=== PATIENT | female | born 1995 | race Two or more races ===

== ENCOUNTER 2016-10-16 20:36 | Emergency (ER) | payer OTHER ==
[~2016-10-16] VITALS: Ht 165.1 cm; Wt 72.1 kg
[2016-10-16 21:37] VITALS: BP 126/69
== END 2016-10-16 23:01 | disposition home or self-care (01) ==
LOC: ER 20:39
DX: O98.519 Other viral diseases complicating pregnancy, unspecified trimester (principal); B00.89 Other herpesviral infection; Z3A.00 Weeks of gestation of pregnancy not specified
CPT/HCPCS: 99283; A4606; Z7610

== ENCOUNTER 2020-02-02 08:33 | Emergency (ER) | payer MEDICAID, OTHER ==
[~2020-02-02] VITALS: Ht 165.1 cm; Wt 86.2 kg
--- NOTE | 2020-02-02 08:45 | NUR ---
patient came in to the er c/o epigastric pain and vomitted blood this morning. On room air, breathing evenly and unlabored. connected to the monitor and pulse ox. kept comfortable, will continue to monitor accordingly.
[2020-02-02 09:06] LABS: BASOPHILS # (AUTO) 0.1 /CMM (0.0-0.2); BASOPHILS % (AUTO) 0.4 % (0.0-2.0); EOSINOPHILS % (AUTO) 1.2 % (0.0-6.0); HEMATOCRIT 39 % (33-45); HEMOGLOBIN 12.6 g/dL (11.5-14.8); LYMPHOCYTES # (AUTO) 1.7 /CMM (0.8-4.8); LYMPHOCYTES % (AUTO) 13.3 % (20.0-44.0); MEAN CORPUSCULAR HGB CONC 32 g/dl (31.0-36.0); MEAN CORPUSCULAR VOLUME 84 fL (82-100); MONOCYTES # (AUTO) 0.6 /CMM (0.1-1.30); NEUTROPHILS % (AUTO) 80.1 % (43.0-81.0); PLATELET COUNT (AUTO) 410 /CMM (150-450); RED BLOOD CELL COUNT(AUTO) 4.62 MIL/uL (4.0-5.2); WHITE BLOOD COUNT (AUTO) 12.5 K/uL (4.3-11.0)
[2020-02-02 09:15] LABS: CALCIUM, SERUM 8.8 mg/dL (8.5-10.1); CREATININE 0.7 mg/dL (0.6-1.3); POTASSIUM 3.8 mmol/L (3.5-5.1)
[2020-02-02 09:21] LABS: ALBUMIN 3.9 g/dL (3.4-5.0); BILIRUBIN,DIRECT 0.1 mg/dL (0.0-0.2); BILIRUBIN,TOTAL 0.4 mg/dL (0.2-1.0); TOTAL PROTEIN, SERUM 7.6 g/dL (6.4-8.2)
[2020-02-02 09:31] VITALS: BP 135/88
--- NOTE | 2020-02-02 09:32 | NUR ---
Patient discharged to home in stable condition. Written and verbal after care instructions given. Patient verbalizes understanding of instruction.
== END 2020-02-02 09:32 | disposition home or self-care (01) ==
LOC: ER 08:36
DX: K92.0 Hematemesis (principal); F10.10 Alcohol abuse, uncomplicated; Y90.9 Presence of alcohol in blood, level not specified
CPT/HCPCS: 36415; 80048-TC; 80076-TC; 83690-TC; 84703-TC; 85025-TC; 85730-TC